=== PATIENT | male | born 1985 | race Caucasian/White ===

== ENCOUNTER 2023-12-08 02:19 | Emergency (ER) | payer BC, SELFPAY ==
--- NOTE | ~2023-12-08 | XR_ITS ---
Clinical Indication: Chest pain PA and lateral views of the chest: Comparison: None Findings: The lungs are clear, without evidence of focal consolidation or pleural effusion. Cardiome diastinal silhouette is within normal limits. Bones and soft tissues are unremarkable. Impression: Normal chest. Reviewed, dictated and finalized at location . GING ATTORNEY Impression: Normal chest.
--- NOTE | 2023-12-08 02:20 | ECG_ITS ---
Measurements Intervals [place] Rate: 74 P: 25 MN: 156 QRS: 86 QRSD: 81 T: 39 QT: 372 QTc: 413 Interpretive Statements SINUS RHYTHM NO PREVIOUS ECG AVAILABLE FOR COMPARISON Electronically Signed On 12-08-2023 11:23:21 EMT BASIC by Jason Jones M.D.
[2023-12-08 02:32] VITALS: BP 128/83; PULSE 73; RESP 16; TEMP 36.6; O2SAT 98
[2023-12-08 02:42] LABS: Basophils Absolute Auto 0.1 K/mm3 (0.0-0.1); Basophils Percent Auto 0.6 % (0.2-1.2); Eosinophils Absolute Auto 0.1 K/mm3 (0-0.3); Eosinophils Percent Auto 1.8 % (0-4.4); Hematocrit 45.7 % (42.0-52.0); Hemoglobin 14.6 g/dL (14.0-18.0); Immature Granulocyte Absolute 0.07 K/mm3 (0.00-0.031); Immature Granulocyte Percent A 0.9 % (0-0.5); Lymphocytes Absolute Auto 1.99 K/mm3 (0.9-3.2); Lymphocytes Percent Auto 25.2 % (18.3-44.2); Mean Corpuscular HGB Conc 31.9 g/dl (32-36); Mean Corpuscular Hemoglobin 29.7 pg (26-34); Mean Corpuscular Volume 93.1 fl (80-100); Mean Platelet Volume 10.6 fl (7.4-10.4); Monocytes Absolute Auto 0.8 K/mm3 (0.1-0.6); Monocytes Percent Auto 9.5 % (2.6-8.5); Neutrophils Absolute Auto 4.9 K/mm3 (1.3-6.7); Platelet Count Result 231 k/mm3 (150-375); Red Blood Count 4.91 M/mm3 (4.6-6.20); Red Cell Distribution Width 12.2 % (11.5-14.5); White Blood Count 7.9 K/mm3 (4.5-10.0)
[2023-12-08 02:51] LABS: Alanine Aminotransferase 91 U/L (6-50); Albumin Level 4.9 g/dL (3.5-5.1); Alkaline Phosphatase 78 U/L (38-126); Anion Gap 7 mmol/L (8-16); Aspartate Amino Transferase 44 U/L (17-59); Bilirubin,Total 0.6 mg/dL (0.2-1.3); Blood Urea Nitrogen 14 mg/dL (9-20); Calcium 9.8 mg/dL (8.4-10.2); Carbon Dioxide 28 mmol/L (22-30); Chloride 104 mmol/L (98-107); Estimated CRCL calculation 110 ml/min; Estimated Glomerular Filt Rate > 60; Glucose 115 mg/dL (65-110); Lipase 96 U/L (23-300); Potassium 4.3 mmol/L (3.4-5.0); Sodium 139 mmol/L (137-145)
[2023-12-08 02:53] LABS: Prothrombin Time 13.9 Seconds (11.1-14.7)
[2023-12-08 02:54] LABS: Partial Thromboplastin Time 29.8 SECONDS (22.3-36.8)
[2023-12-08 03:03] LABS: Troponin I < 0.012 ng/mL (0.000-0.034)
[2023-12-08 03:11] LABS: D Dimer < 0.27 ug/mL (<0.48)
[2023-12-08 03:12] VITALS: PULSE 86
[2023-12-08 03:14] VITALS: BP 128/96; PULSE 81; RESP 13; O2SAT 98
[2023-12-08] MEDS: ASPIRIN 81 MG CHEWABLE TABLET 324 MG PO (03:15)
--- NOTE | 2023-12-08 03:36 | ED.GENADULT ---
HPI - General Adult General Chief complaint: Chest Pain Stated complaint: cp, left fingers tingling Time Seen by Provider: 12/08/23 02:43 History of Present Illness HPI narrative: patient 38-year-old gentleman presents emergency department with chief complaint of left-sided chest pain. Patient states that the pain began around 10 30 this evening reports the pain feels like a pinching sensation in the left side of his chest. Patient reports no nausea no vomiting or diaphoresis denies shortness of breath. Patient reports he has had episodes similar to this a few years ago that everything checked out good. 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 Nursing and ancillary documentation was reviewed. Exam Narrative: GENERAL: Well-appearing, well-nourished, and in no acute distress. HEAD: Normocephalic, atraumatic. EYES: PERRLA and EOMI. ENT: Nares clear, no rhinorrhea or epistaxis. Mucous membranes moist. NECK: Supple. CHEST: Clear to auscultation. No respiratory distress. HEART: Regular rate and rhythm. No murmur heard. Normal peripheral pulses. ABDOMEN: Soft, nontender, nondistended, normal active bowel sounds. EXTREMITIES: Normal range of motion. No edema. SKIN: Warm, dry, no rash. NEURO: No focal deficits. Alert and oriented x3. PSYCH: Normal mood and affect. Course Vital Signs Vital signs: Vital Signs Temperature 36.6 C 12/08/23 02:32 Pulse Rate 73 12/08/23 02:32 Respiratory Rate 16 12/08/23 02:32 Blood Pressure 128/83 12/08/23 02:32 Pulse Oximetry 98 12/08/23 02:32 Oxygen Delivery Room Air 12/08/23 02:32 Temperature 36.6 C 12/08/23 02:32 Pulse Rate 66 12/08/23 05:43 Respiratory Rate 13 12/08/23 05:43 Blood Pressure 118/85 12/08/23 05:43 Pulse Oximetry 98 12/08/23 05:43 Oxygen Delivery Room Air 12/08/23 02:32 Medical Decision Making MDM Narrative Medical decision making narrative: differential diagnosis includes ACS, pulmonary embolism, pneumothorax, gastroesophageal reflux disease, atypical chest pain EKG showed no acute ischemic changes initial troponin and D-dimer were negative chest x-ray showed no widened mediastinum no evidence pneumothorax Vital Signs Vital Signs: Vital Signs Temperature 36.6 C 12/08/23 02:32 Pulse Rate 73 12/08/23 02:32 Respiratory Rate 16 12/08/23 02:32 Blood Pressure 128/83 12/08/23 02:32 Pulse Oximetry 98 12/08/23 02:32 Oxygen Delivery Room Air 12/08/23 02:32 Temperature 36.6 C 12/08/23 02:32 Pulse Rate 66 12/08/23 05:43 Respiratory Rate 13 12/08/23 05:43 Blood Pressure 118/85 12/08/23 05:43 Pulse Oximetry 98 12/08/23 05:43 Oxygen Delivery Room Air 12/08/23 02:32 Lab Data 12/08/23 02:36 12/08/23 02:36 Labs: Lab Results 12/08/23 12/08/23 Range/Units 02:36 05:25 WBC 7.9 (4.5-10.0) K/mm3 RBC 4.91 (4.6-6.20) M/mm3 Hgb 14.6 (14.0-18.0) g/dL Hct 45.7 (42.0-52.0) % MCV 93.1 (80-100) fl MCH 29.7 (26-34) pg MCHC 31.9 L (32-36) g/dl RDW 12.2 (11.5-14.5) % Plt Count 231 (150-375) k/mm3 MPV 10.6 H (7.4-10.4) fl Immature Gran % (Auto) 0.9 H (0-0.5) % Neut % (Auto) 62.0 (45.5-73.1) % Lymph % (Auto) 25.2 (18.3-44.2) % [facility] % (Auto) 9.5 H (2.6-8.5) % Eos % (Auto) 1.8 (0-4.4) % Baso % (Auto) 0.6 (0.2-1.2) % Lymph # (Auto) 1.99 (0.9-3.2) K/mm3 [facility] # (Auto) 0.8 H (0.1-0.6) K/mm3 Eos # (Auto) 0.1 (0-0.3) K/mm3 Baso # (Auto) 0.1 (0
[2023-12-08 04:54] VITALS: BP 116/85; PULSE 74; RESP 12; O2SAT 97
[2023-12-08 05:43] VITALS: BP 118/85; PULSE 66; RESP 13; O2SAT 98
[2023-12-08 05:59] LABS: Troponin I < 0.012 ng/mL (0.000-0.034)
[2023-12-08 06:39] VITALS: BP 118/74; PULSE 87; RESP 16; O2SAT 98
== END 2023-12-08 06:40 | disposition home or self-care (01) ==
PROVIDERS: Emergency Provider Emergency Medicine
DX: R07.89 Other chest pain (principal); I10 Essential (primary) hypertension
CPT/HCPCS: 36415; 71046; 80053; 83690; 84484; 85025; 85380; 85610; 85730; 93005; 99284; A9270

== ENCOUNTER 2024-09-03 10:29 | Outpatient (CLI) | payer BC, SELFPAY ==
--- NOTE | ~2024-09-03 | XR_ITS ---
Lumbosacral Spine: AP and lateral views Clinical History: Pain Findings: The normal lordotic curve is maintained. The vertebral bodies and posterior elements are i ntact. The intervertebral disc spaces are preserved. There is moderate facet arthropathy from L3 thr ough S1. The sacroiliac joints are normally outlined. Impression: Facet arthropathy, as above. Reviewed, dictated and finalized at location . E SHOW JUDGE Impression: Facet arthropathy, as above.
--- NOTE | ~2024-09-03 | XR_ITS ---
Thoracic spine: Clinical Indication: Back pain AP and lateral views were performed. No fracture is seen. There is normal alignment of the vertebrae. The intervertebral disc spaces appe ar normal. Paravertebral soft tissues appear normal. Impression: No significant abnormalities noted. Reviewed, dictated and finalized at [facility]. CHECKER Impression: No significant abnormalities noted.
== END 2024-09-03 10:30 | disposition home or self-care (01) ==
PROVIDERS: PCP Internal Medicine; Visit Provider Internal Medicine
DX: M54.50 Low back pain, unspecified (principal)
CPT/HCPCS: 72072; 72100

== ENCOUNTER 2025-10-08 02:38 | Emergency (ER) | payer BC, SELFPAY ==
--- NOTE | ~2025-10-08 | XR_ITS ---
Examination: XR chest 2V Clinical History: cp Comparison: 12/08/2023 Technique: PA and Lateral Findings: Cardiomediastinal silhouette normal size and configuration. Lungs clear. No acute bony abnormality. IMPRESSION: 1. No acute cardiopulmonary findings. Reviewed, dictated and finalized at location R. 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
--- NOTE | 2025-10-08 02:40 | ECG_ITS ---
Test Date: 2025-10-08 02:48:30 Measurements Intervals [place] Rate: 71 P: 34 [place]: 152 QRS: 88 QRSD: 83 T: 46 QT: 386 QTc: 421 Interpretive Statements SINUS RHYTHM DELAYED PRECORDIAL R/S TRANSITION BORDERLINE ECG No previous ECG available for comparison Electronically Signed On 10-08-2025 06:31:28 METAL BALER by Mio Karimi D.O.
[2025-10-08 02:42] VITALS: BP 140/88; PULSE 76; RESP 16; TEMP 36.1; O2SAT 100
[2025-10-08 03:05] LABS: Hematocrit 44.3 % (42.0-52.0); Hemoglobin 14.6 g/dL (14.0-18.0); Immature Granulocyte Percent A 0.3 % (0-0.5); Lymphocytes Absolute Auto 3.09 K/mm3 (0.9-3.2); Mean Corpuscular HGB Conc 33.0 g/dl (32-36); Mean Corpuscular Hemoglobin 30.5 pg (26-34); Mean Corpuscular Volume 92.7 fl (80-100); Nucleated Red Blood Cells Absolute Auto 0.000 K/mm3 (0.0-0.012); Nucleated Red Blood Cells Perc 0.0 % (0.0-0.2); Platelet Count Result 256 k/mm3 (150-375); Red Blood Count 4.78 M/mm3 (4.6-6.20); White Blood Count 8.8 K/mm3 (4.5-10.0)
[2025-10-08] MEDS: ASPIRIN 81 MG CHEWABLE TABLET 324 MG PO (03:07)
[2025-10-08 03:19] LABS: Alanine Aminotransferase 46 U/L (6-50); Albumin Level 4.7 g/dL (3.5-5.1); Alkaline Phosphatase 74 U/L (38-126); Anion Gap 7 mmol/L (4-12); Aspartate Amino Transferase 41 U/L (17-59); Bilirubin,Total 1.0 mg/dL (0.2-1.3); Blood Urea Nitrogen 9 mg/dL (9-20); Calcium 10.3 mg/dL (8.4-10.2); Carbon Dioxide 29 mmol/L (22-30); Chloride 103 mmol/L (98-107); Estimated CRCL calculation 104 ml/min; Estimated Glomerular Filt Rate > 60; Glucose 118 mg/dL (65-110); Lipase 84 U/L (23-300); Potassium 3.9 mmol/L (3.4-5.0); Sodium 139 mmol/L (137-145); Total Protein 8.7 g/dL (6.3-8.2)
[2025-10-08 03:22] LABS: INR 1.1; Prothrombin Time 13.8 Seconds (11.1-14.7)
[2025-10-08 03:23] LABS: Partial Thromboplastin Time 28.4 Seconds (22.3-36.8)
[2025-10-08 03:30] LABS: Troponin I < 0.012 ng/mL (0.000-0.034)
[2025-10-08 03:31] LABS: Troponin I < 0.012 ng/mL (0.000-0.034)
[2025-10-08 03:49] VITALS: O2SAT 98
--- OUTSIDE RECORDS SUMMARY | 2025-10-08 03:50 | XMS_ITS | Clinical Summary ---
Author Organization [facility] Address [address] [place] [address] Care Team Providers Care Twister In Name Role Phone Ramiro Pichardo MD Primary Care Provider [phone] Source Comments [facility],non-owned Affiliates and Associated Physician Practices is amultiple site organization consisting of ambulatory clinics and hospital sitesin [place], [place], [place] and [place]. This disclosure is being madepursuant to the Care Everywhere program and may not contain all information available regarding this patient. Last updated 18.[facility] Allergies Active Allergy Reactions Criticality Noted Date Comments Contrast-Iodinated Agents For Ct/Other Urticaria Medium 01/09/2019 Medications * Be aware that medications may not be up to date on this document. Alwaysverify current medications with the patient. benzonatate (TESSALON) 200 MG capsule Take 1 capsule by mouth 3 times daily as needed for Cough 30 capsule 12/12/2019 Active Active Problems Problem Noted Date Diagnosed Date Elevated liver enzymes 01/09/2019 Overview (08/29/2024): 05/28/19 Fibroscan CAP 335, LSM 6.2 kPa 08/29/24 Fibroscan CAP 230, LSM 5.6 kPa Social History Tobacco Use Types Packs/Day Years Used Date Smoking Tobacco: Never Smokeless Tobacco: Never Alcohol Use Standard Drinks/Week Comments Yes 20 (1 standard drink = 0.6 oz pu re alcohol) Sex and Gender Information Value Date Recorded Sex Assigned at Not on file Legal Sex Male 1:46 PM [employer] Gender Identity Not on file Sexual Orientation Not on file Last Filed Vital Signs Vital Sign Reading Time Taken Comments Blood Pressure 116/76 12/12/2019 12:07 PM INSPECTOR MECHANICAL Pulse 87 12/12/2019 12:07 PM INSPECTOR MECHANICAL Temperature 36.8 C (98.2 F) 12/12/2019 12:07 PM INSPECTOR MECHANICAL Respiratory Rate 17 12/12/2019 12:07 PM INSPECTOR MECHANICAL Oxygen Saturation 96% 12/12/2019 12:07 PM INSPECTOR MECHANICAL Inhaled Oxygen Concentration - - Weight 85.3 kg (188 lb) 12/12/2019 12:07 PM INSPECTOR MECHANICAL Height 177.8 cm (5' 10) 12/12/2019 12:07 PM INSPECTOR MECHANICAL Body Mass Index 26.98 12/12/2019 12:07 PM INSPECTOR MECHANICAL Plan of Treatment Health Maintenance Due Date Last Done Comments LIPID TESTING 1983 HIV SCREENING 1998 HEPATITIS C SCREENING 08/12/2001 DTAP/TDAP/TD VACCINES (1 - Tdap) 2002 HEPATITIS B VACCINE (1 of 3 - 19+ 3-dose series) 2002 HPV VACCINE (1 - 3-dose SCDM series) 2010 DEPRESSION SCREENING 10/31/2024 COVID-19 VACCINE (1 - 2024-2 6 season) 2025 INFLUENZA VACCINE (#1) 2025 ZOSTER VACCINE (1 of 2) 2033 HIB VACCINE Aged Out No longer eligi ble based on patient's age to complete this topic MENINGOCOCCAL (Group B) VACC INE SHARED DECISION-MAKING Aged Out No longer eligibl e based on patient's age to complete this topic MENINGOCOCCAL GROUPS A/C/Y/W VACCINE Aged Out No longer eligible b ased on patient's age to complete this topic PNEUMOCOCCAL VACCINE Aged Out No long er eligible based on patient's age to complete this topic Insurance [facility] Care Teams Twister In Relationship Specialty Start Date End Date Ramiro Pichardo MD PCP - General Internal Medicine 12/19/18
[2025-10-08 03:51] VITALS: BP 126/82; PULSE 66; RESP 18; O2SAT 98
[2025-10-08 04:06] LABS: Magnesium 2.0 mg/dL (1.6-2.3)
[2025-10-08 04:23] VITALS: BP 139/87; PULSE 57; RESP 16; O2SAT 100
[2025-10-08] MEDS: LACTATED RINGERS 1,000 ML 999 ML IV CONT (04:23)
--- NOTE | 2025-10-08 04:23 | ED_ITS ---
HPI - General Adult General Chief complaint: Chest Pain Stated complaint: chest pain Time Seen by Provider: 10/08/25 03:39 History of Present Illness HPI narrative: 40-year-old male presenting to the emergency department for intermittent heart palpitations. Patient states he did have these previously in the ER secondary to alcohol consumption. Patient states he did drink heavily on Tuesday night did feel hung over on Tuesday during the day. He states that he did go jogging in the evening was not having any chest pain at that time as he was going to bed he started notice intermittent heart palpitations. Upon arrival emergency department patient states the symptoms have since resolved. Patient does seem to be describing PVCs but patient is in normal sinus rhythm with no evidence of SVT no evidence PVCs on the EKG. Related Data Allergies Allergy/AdvReac Type Severity Reaction Status Date / Time iohexol (From contrast - CT, Allergy Rash Verified 10/08/25 02:38 X-RAY) Review of Systems 2 Review of Systems: All systems reviewed & are unremarkable except as noted in HPI and below Exam 2 Narrative: APPEARANCE: Well appearing, no pain, no distress, well-nourished. HEAD: normocephalic, atraumatic. EYES: PERRLA/EOMI, conjunctivae clear. NOSE: Normal no drainage EARS:TMS clear with good light reflex. THROAT: Pharynx clear, no exudate. NECK: Supple. No adenopathy, no masses. RESPIRATORY: Airway patent, respirations nonlabored. Clear to auscultation bilaterally, no rales, rhonchi, wheezing. CARDIOVASCULAR: Regular rate and rhythm without murmurs rubs or gallops. ABDOMINAL: Soft, nontender, nondistended, normal bowel sounds MUSCULOSKELETAL: Moves all extremities. Strength/ROM intact, No edema, No calf tenderness. NEURO: Alert. Cranial nerves II through XII intact. Good gait. Good coordination SKIN: Warm, dry. Normal Color Course Vital Signs Vital signs: Vital Signs Temperature 97 F L 10/08/25 02:42 Pulse Rate 76 10/08/25 02:42 Respiratory Rate 16 10/08/25 02:42 Blood Pressure 140/88 10/08/25 02:42 Pulse Oximetry 100 10/08/25 02:42 Oxygen Delivery Room Air 10/08/25 02:42 Temperature 97 F L 10/08/25 02:42 Pulse Rate 66 10/08/25 05:12 Respiratory Rate 14 10/08/25 05:12 Blood Pressure 126/84 10/08/25 05:12 Pulse Oximetry 100 10/08/25 05:12 Oxygen Delivery Room Air 10/08/25 03:49 [facility] Narrative Medical decision making narrative: 40-year-old male present to the emergency department for evaluation for her palpitations. Upon arrival emergency department patient's symptoms have resolved. Patient is a normal sinus rhythm. Patient denies any chest pain with this. Patient does have prior history of her palpitations secondary to alcohol consumption. Patient did not drink last night but he drank the night before. Patient is currently afebrile with a leukocytosis hemoglobin of 14.6. INR 1.1. No acute abnormalities on his CMP patient had a normal troponin and normal magnesium. Patient was treated with a L of lactated Ringer's. Chest x-ray shows no acute cardiopulmonary abnormality. Patient was discharged to home and normal sinus rhythm. Low concern for ACS, pulmonary embolism, pneumonia. The patient was advised to refrain from alcohol consumption. Patient was encouraged of close outpatient follow-up with his primary care physician. All questions concerns were addressed. Patient was well-appearing at time of discharge. Differential Diagnosis Differential Diagnosis: PVCs, AFib, tachycardia, SVT, ACS, dehydration Lab Data [facility] Lab Attestation statement: I personally reviewed the patient's lab results. 10/08/25 02:52 10/08/25 02:52 Labs: Lab Results 10/08/25 10/08/25 10/08/25 Range/Units 02:42 02:52 02:52 WBC 8.8 (4.5-10.0) K/mm3 RBC 4.78 (4.6-6.20) M/mm3 Hgb 14.6 (14.0-18.0) g/dL Hct 44.3 (42.0-52.0) % MCV 92.7 (80-100) fl MCH 30.5 (26-34) pg MCHC 33.0 (32-36) g/dl RDW 12.5 (11.5-14.5) % Plt Count 256 (150-375) k/mm3 MPV 10.5 H (7.4-10.4) fl Immature Gran % (Auto) 0.3 (0-0.5) % Neut % (Auto) 52.7 (45.5-73.1) % Lymph % (Auto) 35.3 (18.3-44.2) % [place] % (Auto) 10.5 H (2.6-8.5) % Eos % (Auto) 0.9 (0-4.4) % Baso % (Auto) 0.3 (0.2-1.2) % Lymph # (Auto) 3.09 (0.9-3.2) K/mm3 [place] # (Auto) 0.9 H (0.1-0.6) K/mm3 Eos # (Auto) 0.1 (0-0.3) K/mm3 Baso # (Auto) 0.0 (0.0-0.1) K/mm3 Abs Immat Gran (auto) 0.03 (0.00-0.031) K/mm3 Absolute Neuts (auto) 4.6 (1.3-6.7) K/mm3 Absolute Nucleated RBC 0.000 (0.0-0.012) K/mm3 Nucleated RBC % 0.0 (0.0-0.2) % PT (11.1-14.7) Seconds INR APTT (22.3-36.8) Seconds Sodium 139 (137-145) mmol/L Potassium 3.9 (3.4-5.0) mmol/L Chloride 103 (98-107) mmol/L Carbon Dioxide 29 (22-30) mmol/L Anion Gap 7 (4-12) mmol/L BUN 9 D (9-20) mg/dL Creatinine 0.83 (0.7-1.3) mg/dL Estim Creat Clear Calc 104 ml/min Estimated GFR > 60 (59 - ) Glucose 118 H (65-110) mg/dL Calcium 10.3 H (8.4-10.2) mg/dL Magnesium 2.0 (1.6-2.3) mg/dL Total Bilirubin 1.0 (0.2-1.3) mg/dL AST 41 (17-59) U/L ALT 46 (6-50) U/L Alkaline Phosphatase 74 (38-126) U/L Troponin I < 0.012 < 0.012 (0.000-0.034) ng/mL Total Protein 8.7 H (6.3-8.2) g/dL Albumin 4.7 (3.5-5.1) g/dL Lipase 84 (23-300) U/L TSH (Reflex) 2.040 (0.465-4.68) uIU/mL 10/08/25 Range/Units 02:53 WBC (4.5-10.0) K/mm3 RBC (4.6-6.20) M/mm3 Hgb (14.0-18.0) g/dL Hct (42.0-52.0) % MCV (80-100) fl MCH (26-34) pg MCHC (32-36) g/dl RDW (11.5-14.5) % Plt Count (150-375) k/mm3 MPV (7.4-10.4) fl Immature Gran % (Auto) (0-0.5) % Neut % (Auto) (45.5-73.1) % Lymph % (Auto) (18.3-44.2) % [place] % (Auto) (2.6-8.5) % Eos % (Auto) (0-4.4) % Baso % (Auto) (0.2-1.2) % Lymph # (Auto) (0.9-3.2) K/mm3 [place] # (Auto) (0.1-0.6) K/mm3 Eos # (Auto) (0-0.3) K/mm3 Baso # (Auto) (0.0-0.1) K/mm3 Abs Immat Gran (auto) (0.00-0.031) K/mm3 Absolute Neuts (auto) (1.3-6.7) K/mm3 Absolute Nucleated RBC (0.0-0.012) K/mm3 Nucleated RBC % (0.0-0.2) % PT 13.8 (11.1-14.7) Seconds INR 1.1 APTT 28.4 (22.3-36.8) Seconds Sodium (137-145) mmol/L Potassium (3.4-5.0) mmol/L Chloride (98-107) mmol/L Carbon Dioxide (22-30) mmol/L Anion Gap (4-12) mmol/L BUN (9-20) mg/dL Creatinine (0.7-1.3) mg/dL Estim Creat Clear Calc ml/min Estimated GFR (59 - ) Glucose (65-110) mg/dL Calcium (8.4-10.2) mg/dL Magnesium (1.6-2.3) mg/dL Total Bilirubin (0.2-1.3) mg/dL AST (17-59) U/L ALT (6-50) U/L Alkaline Phosphatase (38-126) U/L Troponin I (0.000-0.034) ng/mL Total Protein (6.3-8.2) g/dL Albumin (3.5-5.1) g/dL Lipase (23-300) U/L TSH (Reflex) (0.465-4.68) uIU/mL Imaging Data Attestation: I personally reviewed and interpreted this imaging study as follows: My impression: Chest x-ray: No acute cardiopulmonary abnormality Radiologist's impression: ITS Impressions Chest X-Ray 10/08/25 06:28 IMPRESSION: 1. No acute cardiopulmonary findings. Discharge Plan Discharge Clinical Impression: Heart palpitations Patient Disposition: Home Condition: Stable Instructions: Antibiotic Form, Heart Palpitations (DC) Additional Instructions: Avoid alcohol consumption. Drink plenty of fluids. Have close follow-up with your primary care physician for additional outpatient cardiac testing as needed. If you have any worsening symptoms then please call or return to the emergency department. Patient Language: [place] Follow-up/Referrals: Marino,MD Ramiro [Primary Care Provider]
[2025-10-08 04:39] LABS: Thyroid Stimulating Hormone Reflex 2.040 uIU/mL (0.465-4.68)
[2025-10-08 05:12] VITALS: BP 126/84; PULSE 66; RESP 14; O2SAT 100
== END 2025-10-08 05:20 | disposition home or self-care (01) ==
PROVIDERS: Emergency Provider Emergency Medicine; PCP Internal Medicine
DX: R00.2 Palpitations (principal); R94.31 Abnormal electrocardiogram [ECG] [EKG]
CPT/HCPCS: 36415; 71046; 80053; 83690; 83735; 84443; 84484; 85025; 85610; 85730; 93005; 96360; 99284; A9270; J7120